=== PATIENT | female | born 1945 | race Caucasian/White ===

== ENCOUNTER → 2016-09-10 | Outpatient (CLI) | payer MEDICARE, OTHER ==
[~2016-09-10] MED LIST: ALBU8I INH; BONI150T PO; DILT31TA PO; IRBE150T49 PO; LEVO112T2 PO; LEXA10TA PO; PRED50TA PO
== END ==
LOC: PLAB 15:46
PROVIDERS: ATTEND Psychiatry & Neurology Neurology
DX: R41.3 Other amnesia (principal)
CPT/HCPCS: 36415; 82607; 82746; 84425

== ENCOUNTER → 2016-10-10 | Outpatient (CLI) | payer MEDICARE, OTHER ==
[2016-10-10 09:13] LABS: AUTOMATED NEUTROPHIL # 3.4 TH/MM3 (1.8-7.7); BASOPHIL # 0.1 TH/MM3 (0-0.2); BASOPHIL % 2.7 % (0.0-2.0); EOSINOPHIL # 0.1 TH/MM3 (0-0.4); EOSINOPHIL % 1.6 % (0.0-4.0); HEMATOCRIT 38.9 % (35.0-46.0); HEMO FLAGS DIFF FINAL; LYMPH % 26.2 % (9.0-44.0); LYMPHOCYTE # 1.4 TH/MM3 (1.0-4.8); MEAN CELL VOLUME 92.2 FL (80.0-100.0); MEAN CORPUSCULAR HEMOGLOBIN 31.5 PG (27.0-34.0); MEAN CORPUSCULAR HGB CONC 34.2 % (32.0-36.0); MONO % 7.2 % (0.0-8.0); NEUT % 62.3 % (16.0-70.0); PLATELET COUNT 300 TH/MM3 (150-450); RED BLOOD COUNT 4.22 MIL/MM3 (4.00-5.30); RED CELL DISTRIBUTION WIDTH 12.9 % (11.6-17.2); WHITE BLOOD COUNT 5.4 TH/MM3 (4.0-11.0)
[2016-10-10 09:48] LABS: ALKALINE PHOSPHATASE 67 U/L (45-117); ALT (GPT) 25 U/L (10-53); ANION GAP 7 MEQ/L (5-15); AST (GOT) 26 U/L (15-37); BLOOD UREA NITROGEN 18 MG/DL (7-18); CHLORIDE 93 MEQ/L (98-107); GLOMERULAR FILTRATION RATE 62 ML/MIN (>89); GLUCOSE,FASTING 104 MG/DL (74-99); HDL CHOLESTEROL 65.5 MG/DL (40.0-60.0); LDL CHOLESTEROL 19 MG/DL (0-99); POTASSIUM 4.8 MEQ/L (3.5-5.1); SODIUM (NA) 130 MEQ/L (136-145); TOTAL BILIRUBIN ADULT 0.8 MG/DL (0.2-1.0)
[2016-10-10 14:11] LABS: HEMOGLOBIN A1a 1.2 %; HEMOGLOBIN A1b 1.4 %; HEMOGLOBIN Ao 85.8 %; HEMOGLOBIN LA1C 2.1 %; HEMOGLOBIN P3 5.4 %
== END ==
LOC: PLAB 07:49
PROVIDERS: ATTEND Family Medicine
DX: H35.039 Hypertensive retinopathy, unspecified eye (principal); E03.9 Hypothyroidism, unspecified
CPT/HCPCS: 36415; 80053; 80061; 83036; 84443; 85025

== ENCOUNTER → 2017-01-12 | Outpatient (CLI) | payer MEDICARE, OTHER | LOC: PLAB 10:34 | PROVIDERS: ATTEND Family Medicine | DX: E03.9 Hypothyroidism, unspecified (principal) | CPT/HCPCS: 36415; 84443 ==

== ENCOUNTER → 2017-06-25 | Outpatient (CLI) | payer MEDICARE, OTHER ==
[2017-06-25 13:25] LABS: AUTOMATED NEUTROPHIL # 3.4 TH/MM3 (1.8-7.7); BASOPHIL # 0.1 TH/MM3 (0-0.2); BASOPHIL % 1.7 % (0.0-2.0); EOSINOPHIL # 0.1 TH/MM3 (0-0.4); EOSINOPHIL % 2.6 % (0.0-4.0); HEMATOCRIT 42.2 % (35.0-46.0); HEMOGLOBIN 14.4 GM/DL (11.6-15.3); LYMPH % 28.7 % (9.0-44.0); LYMPHOCYTE # 1.6 TH/MM3 (1.0-4.8); MEAN CELL VOLUME 92.5 FL (80.0-100.0); MEAN CORPUSCULAR HEMOGLOBIN 31.6 PG (27.0-34.0); MEAN CORPUSCULAR HGB CONC 34.2 % (32.0-36.0); MEAN PLATELET VOLUME 7.9 FL (7.0-11.0); MONO % 7.1 % (0.0-8.0); MONOCYTE # 0.4 TH/MM3 (0-0.9); NEUT % 59.9 % (16.0-70.0); PLATELET COUNT 256 TH/MM3 (150-450); RED BLOOD COUNT 4.56 MIL/MM3 (4.00-5.30); RED CELL DISTRIBUTION WIDTH 13.4 % (11.6-17.2); WHITE BLOOD COUNT 5.6 TH/MM3 (4.0-11.0)
[2017-06-25 13:28] LABS: ALBUMIN 3.7 GM/DL (3.4-5.0); ALT (GPT) 23 U/L (10-53); AST (GOT) 28 U/L (15-37); BICARBONATE 30.9 MEQ/L (21.0-32.0); BLOOD UREA NITROGEN 17 MG/DL (7-18); CALCIUM 8.7 MG/DL (8.5-10.1); CHLORIDE 96 MEQ/L (98-107); CHOLESTEROL 177 MG/DL (120-200); CREATININE 0.92 MG/DL (0.50-1.00); GLOMERULAR FILTRATION RATE 60 ML/MIN (>89); GLUCOSE,FASTING 93 MG/DL (74-99); SODIUM (NA) 133 MEQ/L (136-145)
[2017-06-25 13:38] LABS: ALKALINE PHOSPHATASE 103 U/L (45-117); CHOLESTEROL/ HDL RATIO 2.28 RATIO; HDL CHOLESTEROL 77.3 MG/DL (40.0-60.0); LDL CHOLESTEROL 63 MG/DL (0-99); TOTAL BILIRUBIN ADULT 0.7 MG/DL (0.2-1.0); TOTAL PROTEIN 7.8 GM/DL (6.4-8.2); TRIGLYCERIDES 182 MG/DL (42-150)
[2017-06-25 14:09] LABS: HEMOGLOBIN A1C 5.7 % (4.3-6.0)
== END ==
LOC: PLAB 09:48
PROVIDERS: ATTEND Family Medicine
DX: J44.9 Chronic obstructive pulmonary disease, unspecified (principal); R26.81 Unsteadiness on feet; I10 Essential (primary) hypertension; E03.9 Hypothyroidism, unspecified; R73.02 Impaired glucose tolerance (oral); Z86.73 Personal history of transient ischemic attack (TIA), and cerebral infarction without residual deficits
CPT/HCPCS: 36415; 80053; 80061; 83036; 84443; 85025

== ENCOUNTER → 2017-10-27 | Outpatient (CLI) | payer MEDICARE, OTHER ==
[2017-10-27 11:47] LABS: BICARBONATE 29.3 MEQ/L (21.0-32.0); CALCIUM 8.2 MG/DL (8.5-10.1)
== END ==
LOC: PLAB 09:03
PROVIDERS: ATTEND Family Medicine
DX: I10 Essential (primary) hypertension (principal); E03.9 Hypothyroidism, unspecified
CPT/HCPCS: 36415; 80048; 84443